=== PATIENT | male | born 1975 | race Caucasian/White ===

== ENCOUNTER 2018-10-08 09:57 | Observation (INO) | payer BC, OTHER ==
[2018-10-08] MEDS ORDERED: HYDROmorphone 1 MG/ML Syringe IVPUSH ONE ×2 (10:05→11:00)
[2018-10-08] MEDS ORDERED: Metoclopramide 10 MG/2 ML SDV IVPUSH ONE (10:05)
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
[2018-10-08] MEDS: Dextrose 5%-0.9% NaCl 1,000 ML IV SCH ×2 (10:18→18:10)
[2018-10-08] MEDS ORDERED: Iohexol 647 MG/ML 100 ML Bottle IVPUSH ONE (10:21)
[2018-10-08] MEDS ORDERED: Sodium Chloride 0.9% 10 ML Syringe FLUSH PRN (10:21)
--- NOTE | 2018-10-08 11:01 | CT ---
CT cervical spine Technique: Multiple axial sections were obtained from above the C1 inferiorly to the bottom of T1. Reconstructed sagittal and coronal images were reviewed. Comparison: No prior cervical spine imaging. Findings: Vertebral body heights and disc spaces are maintained. No bony central or bony neural foraminal stenosis is seen. No cervical spine fracture is identified. No abnormal subluxation is seen. Impression: 1. Nothing acute is appreciated on CT study of the cervical spine. Diagnostic code #1
--- NOTE | 2018-10-08 11:35 | CT ---
CT lumbar spine Technique: Multiple axial sections were obtained through the lumbar spine. Reconstructed coronal and sagittal images were reviewed. Findings: Disc space narrowing is noted at L5-S1 with intervertebral disc fixation as well as transpedicle screws within L5 and S1. Posterior laminectomy is seen at this same level. Circumferential disc bulge is noted at L2-L3 causing mild central canal stenosis. Vacuum disc phenomena is seen within the L4-L5 disc with mild circumferential disc bulge. Anterior osteophytes are seen at L2-L3 and L3-L4. No fracture is seen within the lumbar spine. No abnormal subluxation is seen within the lumbar spine. Impression: 1. Previous surgery. 2. Degenerative change as noted above. 3. No acute abnormality is seen on CT study of the lumbar spine. Diagnostic code #2
--- NOTE | 2018-10-08 11:35 | CT ---
CT thoracic spine Multiple axial sections through the thoracic spine were obtained. Reconstructed coronal and sagittal images were reviewed. Findings: Slight superior endplate concavities are seen of T5, T6 as well as T8 and T9. Minimal endplate concavity superiorly within T10. These are felt to be old and likely developmental. Right-sided rib fractures are again seen as described on chest CT exam. No thoracic spine fracture is seen. Scattered endplate osteophytes are seen. No central canal stenosis or neural foraminal stenosis is identified. Impression: 1. Findings felt to be incidental as noted above. 2. Multiple right-sided rib fractures are again seen. 3. No acute abnormality is appreciated within the thoracic spine. Diagnostic code #2
--- NOTE | 2018-10-08 11:35 | CT ---
Head CT Technique: Multiple axial sections through the brain were obtained. Intravenous contrast not utilized (contrast is noted from prior administration for CT chest abdomen and pelvis exam). Comparison: No prior intracranial imaging. Findings: Ventricles along with basal cisterns and sulci over the convexities are within normal limits for the patient's age. No abnormal parenchymal densities are seen. No evidence of intracranial hemorrhage. No midline shift or mass effect is seen. Bone window settings were reviewed which show an incidental polyp within the left maxillary sinus and right sphenoid sinus. Mild areas of mucosal thickening is seen within the ethmoid sinuses. No acute calvarial abnormality is seen. Impression: 1. Sinus findings which are believed to be chronic and incidental. 2. No acute intracranial abnormality is identified. Diagnostic code #2
--- NOTE | 2018-10-08 11:35 | CT ---
CT chest Technique: Multiple axial sections through the chest were obtained. Intravenous contrast was utilized. Comparison: No prior chest imaging. Findings: Mediastinum and hilar regions appear within normal limits. No pericardial fluid is seen. No axillary adenopathy is identified. Nondisplaced fracture is noted within the posterior right 5th rib. The 6th rib shows a displaced fracture posteriorly with a small amount of air within the adjacent chest wall. There is a minimal amount of adjacent parenchymal density being seen which is felt compatible with atelectasis and possible small area of pulmonary contusion. Very minimal areas of pleural air is seen in this region. Mildly angulated fracture is noted within the posterior 7th rib. Nondisplaced fracture is seen within the posterior 8th rib. No left-sided rib fractures are seen. Additional nondisplaced fractures are noted within the posterior right 3rd and 4th ribs. Impression: 1. Rib fractures within the 3rd through 8th ribs on the right side with displacement of the 6th rib fracture. Around the 6th rib fracture there is a small amount of air within the adjacent chest wall as well as minimal adjacent atelectasis and possibly an amount of pulmonary contusion. Minimal amount of pleural air is also seen at this level. 2. No additional abnormality is seen on CT study of the chest. Diagnostic code #3 CT abdomen and pelvis Technique: Multiple axial sections were obtained from above the dome of the diaphragm inferiorly through the pubic symphysis. Intravenous contrast was utilized. No oral contrast has been given. Findings: Liver shows no focal parenchymal abnormality. Spleen appears within normal limits. Adrenal glands show no nodule. Pancreas is within normal limits. Gallbladder contains no calcified gallstones. Kidney show symmetric contrast enhancement without hydronephrosis or mass. Aorta shows no aneurysm. No retroperitoneal adenopathy or mesenteric abnormalities are seen. No pelvic mass or adenopathy is seen. No free fluid or inflammatory change. Bone window settings were reviewed which show no discrete pelvic fracture. Diagnostic code #2
--- NOTE | 2018-10-08 11:56 | PCM.HP ---
H&P History of Present Illness - General Date of Service: 10/08/18 Admit Problem/Dx: blunt trauma with rib fractures Source of Information: Patient, Provider History Limitations: Reports: No Limitations - History of Present Illness Initial Comments - Free Text/Narative: The patient is a 43 y/o male who was involved in a trauma earlier today when he was thrown off a piece of paving machinery, about 3 ft above ground. The machine was moving backward when it suddenly stopped and he was thrown to the ground. He reports landing on his right shoulder and thorax. He reports feeling difficulty breathing after the injury. He denies any loss of consciousness. He presented to the ED where he underwent CT and lab evaluation. He sustained fractures of right ribs 3-8, with a very minimal hemothorax, possible air in the chest wall. Right Upper Chest Pain Score (Numeric/FACES): 9 - Related Data Allergies/Adverse Reactions: Allergies Allergy/AdvReac Type Severity Reaction Status Date / Time No Known Allergies Allergy Verified 10/08/18 10:10 Home Medications: Home Meds Lisinopril [Prinivil] 10 mg PO DAILY 10/08/18 [History] Past Medical History Cardiovascular History: Reports: Hypertension Respiratory History: Reports: Sleep Apnea Musculoskeletal History: Reports: Back Pain, Chronic (Had spinal fusion done about 7 months ago he believes at L4-L5 level.) - Past Surgical History GI Surgical History: Reports: Hernia, Inguinal (left), Other (See Below) ( Previous umbilical hernia repair done supraumbilically. Well-healed scar) Male Surgical History: Reports: Other (See Below) (left orchiectomy) Neurological Surgical History: Reports: Lumbar Spine (Lumbar spine fusion. He believes L4-L5 and L5-S1 levels. Done in 2018.) Musculoskeletal Surgical History: Reports: Arthroscopic Procedure (bilateral knee arthroscopy) Social & Family History - Family History Cardiac: Reports: High Cholesterol, Hypertension, [place] Endocrine/Metabolic: Reports: Diabetes, type II - Tobacco Use Smoking Status *Q: Never Smoker - Caffeine Use Caffeine Use: Reports: None - Recreational Drug Use Recreational Drug Use: No - Living Situation & Occupation Occupation: Employed H&P Review of Systems - Review of Systems: Review Of Systems: See Below General: Reports: No Symptoms HEENT: Reports: No Symptoms Pulmonary: Reports: No Symptoms Cardiovascular: Reports: No Symptoms Gastrointestinal: Reports: No Symptoms Genitourinary: Reports: No Symptoms Musculoskeletal: Reports: Back Pain Skin: Reports: No Symptoms Exam - Exam Exam: See Below - Vital Signs Vital Signs: Last Vital Signs Temp 36.9 C 10/08/18 10:01 Pulse 92 10/08/18 10:01 Resp 12 10/08/18 10:01 BP 167/99 H 10/08/18 10:01 Pulse Ox 98 10/08/18 10:01 Weight: 113.398 kg - Exam Quality Assessment: No: Supplemental Oxygen General: Alert, Oriented HEENT: Conjunctiva Clear, EOMI Neck: Supple Lungs: Normal Respiratory Effort Cardiovascular: Regular Rate, Regular Rhythm GI/Abdominal Exam: Soft, Non-Tender, No Distention, Pelvis Stable (Male) Exam: Normal Inspection Back Exam: Other (edema over the right paraspinal thorax in area of T6-10, ecchymosis on right flank) Extremities: Normal Inspection Peripheral Pulses: 2+: Posterior Tibial (L), Posterior Tibial (R) Skin: Warm, Dry, Intact Neurological: Cranial Nerves Intact Neuro Extensive - Mental Status: Alert, Oriented x3, Normal Mood/Affect - Patient Data Lab Results Last 24 hrs: Laboratory Results - last 24 hr 10/08/18 10/08/18 10/08/18 Range/Units 10:10 10:10 10:10 WBC 7.97 (4.23-9.07) K/mm3 RBC 4.93 (4.63-6.08) M/mm3 Hgb 14.8 (13.7-17.5) gm/L Hct 43.2 (40.1-51.0) % MCV 87.6 (79.0-92.2) fl MCH 30.0 (25.7-32.2) pg MCHC 34.3 (32.2-35.5) g/dl RDW Std Deviation 38.5 (35.1-43.9) fL Plt Count 294 (163-337) K/mm3 MPV 8.8 L (9.4-12.3) fl Neutrophils % (Manual) 65 H (40-60) % Band Neutrophils % 0 (0-10) % Lymphocytes % (Manual) 23 (20-40) % Atypical Lymphs % 0 % Monocytes % (Manual) 11 H (2-10) % Eosinophils % (Manual) 0 L (0.8-7.0) % Basophils % (Manual) 0 L (0.2-1.2) Metamyelocytes % 1 Platelet Estimate Adequate RBC Morph Comment Normal Sodium 141 (136-145) mEq/L Potassium 3.7 (3.5-5.1) mEq/L Chloride 103 (98-107) mEq/L Carbon Dioxide 28 (21-32) mEq/L Anion Gap 13.7 (5-15) BUN 15 (7-18) mg/dL Creatinine 1.0 (0.7-1.3) mg/dL Est Cr Clr Drug Dosing 101.45 mL/min Estimated GFR (MDRD) > 60 (>60) mL/min BUN/Creatinine Ratio 15.0 (14-18) Glucose 92 (74-106) mg/dL Calcium 9.0 (8.5-10.1) mg/dL Total Bilirubin 0.8 (0.2-1.0) mg/dL AST 28 (15-37) U/L ALT 41 (16-63) U/L Alkaline Phosphatase 84 (46-116) U/L Total Protein 7.7 (6.4-8.2) g/dl Albumin 3.9 (3.4-5.0) g/dl Globulin 3.8 gm/dL Albumin/Globulin Ratio 1.0 (1-2) Amylase 68 (25-115) U/L Blood Type A POSITIVE Gel Antibody Screen Negative Result Diagrams: 10/08/18 10:10 10/08/18 10:10 *Q Meaningful Use (ADM) - VTE Risk Assess *Q Each Risk Factor Represents 1 Point: Age 41 - 59 years, Other Risk Factor ( blunt trauma) Total Score 1 Point Risk Factors: 2 - Problem List (1) Blunt trauma SNOMED Code(s): 679893394, 316077490 ICD Code: T14.90XA - INJURY, UNSPECIFIED, INITIAL ENCOUNTER Status: Acute Current Visit: Yes (2) Ribs, multiple fractures SNOMED Code(s): 5428891 ICD Code: S22.49XA - MULTIPLE FRACTURES OF RIBS, UNSP SIDE, INIT FOR CLOS FX Status: Acute Current Visit: Yes Problem List Initiated/Reviewed/Updated: Yes Orders Last 24hrs: Active Orders 24 hr Category Date Time Status PATIENT RETYPE [BBK] Routine Lab 10/08/18 11:00 Ordered URINALYSIS W/MICROSCOPIC [UA W/MICROSCOPIC] [URIN] Stat Lab 10/08/18 10:25 Ordered Dextrose 5%-0.9% NaCl [Dextrose 5%-Normal Saline] 1,000 Med 10/08/18 10:15 Active ml IV ASDIRECTED Sodium Chloride 0.9% [Saline Flush] Med 10/08/18 10:21 Active 10 ml FLUSH ONETIME PRN Medication Orders Dextrose/Sodium Chloride (Dextrose 5%-Normal Saline) 1,000 mls @ 150 mls/hr IV ASDIRECTED [facility] Last Admin: 10/08/18 10:18 Dose: 150 mls/hr Sodium Chloride (Saline Flush) 10 ml FLUSH ONETIME PRN PRN Reason: IV FLUSH Last Admin: 10/08/18 10:28 Dose: 10 ml Assessment/Plan Comment:: 43 y/o male with blunt trauma 2/2 fall, with right rib fractures and minimal hemothorax, question of air in chest wall - admission for observation and pain control - incentive spirometry, cough and deep breathing - CXR in AM to re-evaluate for delayed PTX or contusion - regular diet - pain control - ambulate ad kristen - f/u on UA for hematuria Vianney Youngblood MD General surgery
[2018-10-08] MEDS ORDERED: Ondansetron 4 MG Tab.DIS PO PRN (12:28)
[2018-10-08] MEDS ORDERED: Albuterol/Ipratropium 3.0-0.5 MG/3 ML Neb Soln NEB PRN (12:28)
[2018-10-08] MEDS ORDERED: HYDROmorphone 0.5 MG/0.5 ML Syringe IVPUSH PRN (12:33)
[2018-10-08] MEDS: Heparin Sodium 5,000 Units/ML Vial SUBCUT SCH ×2 (13:27→20:29)
[2018-10-08] MEDS: Acetaminophen/HYDROcodone 325-5 MG Tab PO PRN ×3 (13:27→22:24)
[2018-10-08] MEDS: Ibuprofen 600 MG Tab PO PRN (15:53)
[2018-10-09] MEDS: Ibuprofen 600 MG Tab PO PRN ×2 (00:03→06:24)
[2018-10-09] MEDS: Dextrose 5%-0.9% NaCl 1,000 ML IV SCH (00:03)
[2018-10-09] MEDS: Acetaminophen/HYDROcodone 325-5 MG Tab PO PRN ×2 (03:45→08:20)
[2018-10-09] MEDS: Heparin Sodium 5,000 Units/ML Vial SUBCUT SCH (03:46)
--- NOTE | 2018-10-09 06:26 | PCM.SURGPN ---
- General Info Date of Service: 10/09/18 Functional Status: Reports: Pain Controlled, Tolerating Diet, Urinating, Incentive Spirometry - Patient Data Vitals - Most Recent: Last Vital Signs Temp 36.4 C 10/09/18 03:52 Pulse 69 10/09/18 03:52 Resp 16 10/09/18 03:52 BP 116/66 10/09/18 03:52 Pulse Ox 96 10/09/18 03:52 Weight - Most Recent: 121.155 kg I&O - Last 24 Hours: Intake & Output 10/08/18 10/08/18 10/09/18 14:59 22:59 06:59 Intake Total 1631 2520 Output Total 325 1550 Balance -325 1631 970 Lab Results Last 24 Hrs: Laboratory Results - last 24 hr 10/08/18 10/08/18 10/08/18 Range/Units 10:10 10:10 10:10 WBC 7.97 (4.23-9.07) K/mm3 RBC 4.93 (4.63-6.08) M/mm3 Hgb 14.8 (13.7-17.5) gm/L Hct 43.2 (40.1-51.0) % MCV 87.6 (79.0-92.2) fl MCH 30.0 (25.7-32.2) pg MCHC 34.3 (32.2-35.5) g/dl RDW Std Deviation 38.5 (35.1-43.9) fL Plt Count 294 (163-337) K/mm3 MPV 8.8 L (9.4-12.3) fl Neutrophils % (Manual) 65 H (40-60) % Band Neutrophils % 0 (0-10) % Lymphocytes % (Manual) 23 (20-40) % Atypical Lymphs % 0 % Monocytes % (Manual) 11 H (2-10) % Eosinophils % (Manual) 0 L (0.8-7.0) % Basophils % (Manual) 0 L (0.2-1.2) Metamyelocytes % 1 Platelet Estimate Adequate RBC Morph Comment Normal Sodium 141 (136-145) mEq/L Potassium 3.7 (3.5-5.1) mEq/L Chloride 103 (98-107) mEq/L Carbon Dioxide 28 (21-32) mEq/L Anion Gap 13.7 (5-15) BUN 15 (7-18) mg/dL Creatinine 1.0 (0.7-1.3) mg/dL Est Cr Clr Drug Dosing 101.45 mL/min Estimated GFR (MDRD) > 60 (>60) mL/min BUN/Creatinine Ratio 15.0 (14-18) Glucose 92 (74-106) mg/dL Calcium 9.0 (8.5-10.1) mg/dL Total Bilirubin 0.8 (0.2-1.0) mg/dL AST 28 (15-37) U/L ALT 41 (16-63) U/L Alkaline Phosphatase 84 (46-116) U/L Total Protein 7.7 (6.4-8.2) g/dl Albumin 3.9 (3.4-5.0) g/dl Globulin 3.8 gm/dL Albumin/Globulin Ratio 1.0 (1-2) Amylase 68 (25-115) U/L Urine Color (Yellow) Urine Appearance (Clear) Urine pH (5.0-8.0) Ur Specific [place] (1.005-1.030) Urine Protein (Negative) Urine Glucose (UA) (Negative) Urine Ketones (Negative) Urine Occult Blood (Negative) Urine Nitrite (Negative) Urine Bilirubin (Negative) Urine Urobilinogen (0.2-1.0) Ur Leukocyte Esterase (Negative) Urine RBC (0-5) /hpf Urine WBC (0-5) /hpf Ur Epithelial Cells (0-5) /hpf Ur Squamous Epith Cells (0-5) /hpf Urine Bacteria (FEW) /hpf Urine Mucus (FEW) /hpf Blood Type A POSITIVE Gel Antibody Screen Negative 10/08/18 10/08/18 Range/Units 11:30 19:10 WBC (4.23-9.07) K/mm3 RBC (4.63-6.08) M/mm3 Hgb (13.7-17.5) gm/L Hct (40.1-51.0) % MCV (79.0-92.2) fl MCH (25.7-32.2) pg MCHC (32.2-35.5) g/dl RDW Std Deviation (35.1-43.9) fL Plt Count (163-337) K/mm3 MPV (9.4-12.3) fl Neutrophils % (Manual) (40-60) % Band Neutrophils % (0-10) % Lymphocytes % (Manual) (20-40) % Atypical Lymphs % % Monocytes % (Manual) (2-10) % Eosinophils % (Manual) (0.8-7.0) % Basophils % (Manual) (0.2-1.2) Metamyelocytes % Platelet Estimate RBC Morph Comment Sodium (136-145) mEq/L Potassium (3.5-5.1) mEq/L Chloride (98-107) mEq/L Carbon Dioxide (21-32) mEq/L Anion Gap (5-15) BUN (7-18) mg/dL Creatinine (0.7-1.3) mg/dL Est Cr Clr Drug Dosing mL/min Estimated GFR (MDRD) (>60) mL/min BUN/Creatinine Ratio (14-18) Glucose (74-106) mg/dL Calcium (8.5-10.1) mg/dL Total Bilirubin (0.2-1.0) mg/dL AST (15-37) U/L ALT (16-63) U/L Alkaline Phosphatase (46-116) U/L Total Protein (6.4-8.2) g/dl Albumin (3.4-5.0) g/dl Globulin gm/dL Albumin/Globulin Ratio (1-2) Amylase (25-115) U/L Urine Color Yellow Yellow (Yellow) Urine Appearance Clear Clear (Clear) Urine pH 7.0 6.0 (5.0-8.0) Ur Specific [place] 1.015 1.010 (1.005-1.030) Urine Protein Trace H Negative (Negative) Urine Glucose (UA) Negative Negative (Negative) Urine Ketones Negative Negative (Negative) Urine Occult Blood Trace-intact H Trace-lysed H (Negative) Urine Nitrite Negative Negative (Negative) Urine Bilirubin Negative Negative (Negative) Urine Urobilinogen 0.2 0.2 (0.2-1.0) Ur Leukocyte Esterase Negative Negative (Negative) Urine RBC 0-5 Not seen (0-5) /hpf Urine WBC Not seen Not seen (0-5) /hpf Ur Epithelial Cells Not seen (0-5) /hpf Ur Squamous Epith Cells Not seen (0-5) /hpf Urine Bacteria Few Not seen (FEW) /hpf Urine Mucus Few Not seen (FEW) /hpf Blood Type Gel Antibody Screen Med Orders - Current: Current Medications Hydrocodone Bitart/Acetaminophen ([place] 325-5 Mg) 2 tab PO Q4H PRN PRN Reason: Pain (moderate 4-6) Last Admin: 10/08/18 22:24 Dose: 2 tab Albuterol/Ipratropium (Duoneb 3.0-0.5 Mg/3 Ml) 3 ml NEB Q4H PRN PRN Reason: Shortness Of Breath/wheezing Heparin Sodium (Porcine) (Heparin Sodium) 5,000 units SUBCUT Q8H [facility] Last Admin: 10/08/18 20:29 Dose: 5,000 units Hydromorphone HCl (Dilaudid) 0.5 mg IVPUSH Q3H PRN PRN Reason: Breakthrough Pain Last Admin: 10/08/18 17:02 Dose: 0.5 mg Dextrose/Sodium Chloride (Dextrose 5%-Normal Saline) 1,000 mls @ 150 mls/hr IV ASDIRECTED [facility] Last Admin: 10/09/18 00:03 Dose: 150 mls/hr Ibuprofen (Motrin) 600 mg PO Q6H PRN PRN Reason: Pain (mild 1-3) Last Admin: 10/09/18 00:03 Dose: 600 mg Lisinopril (Prinivil) 10 mg PO DAILY [facility] Ondansetron HCl (Zofran Odt) 4 mg PO Q6H PRN PRN Reason: nausea, able to take PO Sodium Chloride (Saline Flush) 10 ml FLUSH ONETIME PRN PRN Reason: IV FLUSH Last Admin: 10/08/18 10:28 Dose: 10 ml Discontinued Medications Hydromorphone HCl (Dilaudid) 1 mg IVPUSH ONETIME ONE Stop: 10/08/18 10:06 Last Admin: 10/08/18 10:14 Dose: 1 mg Hydromorphone HCl (Dilaudid) 1 mg IVPUSH ONETIME ONE Stop: 10/08/18 11:01 Last Admin: 10/08/18 11:15 Dose: 1 mg Iohexol (Omnipaque-300) 100 ml IVPUSH ONETIME ONE Stop: 10/08/18 10:22 Last Admin: 10/08/18 10:28 Dose: 100 ml Metoclopramide HCl (Reglan) 10 mg IVPUSH ONETIME ONE Stop: 10/08/18 10:06 Last Admin: 10/08/18 10:16 Dose: 10 mg - Exam Wound/Incisions: Healing Well General: Alert, Oriented HEENT: Pupils Equal, EOMI Lungs: Clear to Auscultation, Normal Respiratory Effort - Problem List & Annotations (1) Blunt trauma SNOMED Code(s): 384780001, 833135116 Code(s): T14.90XA - INJURY, UNSPECIFIED, INITIAL ENCOUNTER Status: Acute Current Visit: Yes (2) Ribs, multiple fractures SNOMED Code(s): 0942099 Code(s): S22.49XA - MULTIPLE FRACTURES OF RIBS, UNSP SIDE, INIT FOR CLOS FX Status: Acute Current Visit: Yes - Problem List Review Problem List Initiated/Reviewed/Updated: Yes - My Orders Last 24 Hours: Active Orders 24 hr Category Date Time Status Patient Status [ADT] Routine ADT 10/08/18 12:28 Active Ambulate [RC] DAILY Care 10/08/18 12:29 Active Antiembolic Devices [RC] DAILY Care 10/08/18 12:31 Active Incentive Spirometry [RT Incentive Spirometry] [RC] Care 10/08/18 12:38 Active Q1HWA Oxygen Therapy [RC] PRN Care 10/08/18 12:28 Active RT Aerosol Therapy [RC] ASDIRECTED Care 10/08/18 12:31 Active Up ad Talia [RC] ASDIRECTED Care 10/08/18 12:28 Active VTE/DVT Education [RC] DAILY Care 10/08/18 12:28 Active Vital Signs [RC] Q4HR Care 10/08/18 12:28 Active Regular Diet [DIET] Diet 10/08/18 Lunch Active Chest 2V [CR] AM Exams 10/09/18 05:11 Ordered Acetaminophen/HYDROcodone [[place] 325-5 MG] Med 10/08/18 12:28 Active 2 tab PO Q4H PRN Albuterol/Ipratropium [DuoNeb 3.0-0.5 MG/3 ML] Med 10/08/18 12:28 Active 3 ml NEB Q4H PRN Dextrose 5%-0.9% NaCl [Dextrose 5%-Normal Saline] 1,000 Med 10/08/18 10:15 Active ml IV ASDIRECTED HYDROmorphone [Dilaudid] Med 10/08/18 12:33 Active 0.5 mg IVPUSH Q3H PRN Heparin Sodium Med 10/08/18 12:30 Active 5,000 units SUBCUT Q8H Ibuprofen [Motrin] Med 10/08/18 12:28 Active 600 mg PO Q6H PRN Lisinopril [Prinivil] Med 10/09/18 09:00 Active 10 mg PO DAILY Ondansetron [Zofran ODT] Med 10/08/18 12:28 Active 4 mg PO Q6H PRN Sodium Chloride 0.9% [Saline Flush] Med 10/08/18 10:21 Active 10 ml FLUSH ONETIME PRN CPAP [RESPCARE] Routine Oth 10/08/18 21:00 Active Sequential Compression Device [OM.PC] Per Unit Routine Oth 10/08/18 12:29 Ordered Resuscitation Status Routine Resus Stat 10/08/18 12:28 Ordered Medication Orders Hydrocodone Bitart/Acetaminophen ([place] 325-5 Mg) 2 tab PO Q4H PRN PRN Reason: Pain (moderate 4-6) Last Admin: 10/08/18 22:24 Dose: 2 tab Admin: 10/08/18 18:07 Dose: 2 tab Admin: 10/08/18 13:27 Dose: 2 tab Albuterol/Ipratropium (Duoneb 3.0-0.5 Mg/3 Ml) 3 ml NEB Q4H PRN PRN Reason: Shortness Of Breath/wheezing Heparin Sodium (Porcine) (Heparin Sodium) 5,000 units SUBCUT Q8H [facility] Last Admin: 10/08/18 20:29 Dose: 5,000 units Admin: 10/08/18 13:27 Dose: 5,000 units Hydromorphone HCl (Dilaudid) 0.5 mg IVPUSH Q3H PRN PRN Reason: Breakthrough Pain Last Admin: 10/08/18 17:02 Dose: 0.5 mg Dextrose/Sodium Chloride (Dextrose 5%-Normal Saline) 1,000 mls @ 150 mls/hr IV ASDIRECTED [facility] Last Admin: 10/09/18 00:03 Dose: 150 mls/hr Infusion: 10/09/18 00:03 Dose: 150 mls/hr Admin: 10/08/18 18:10 Dose: 150 mls/hr Infusion: 05/28/19 17:30 Dose: 150 mls/hr Admin: 10/08/18 10:18 Dose: 150 mls/hr Ibuprofen (Motrin) 600 mg PO Q6H PRN PRN Reason: Pain (mild 1-3) Last Admin: 10/09/18 00:03 Dose: 600 mg Admin: 10/08/18 15:53 Dose: 600 mg Lisinopril (Prinivil) 10 mg PO DAILY [facility] Ondansetron HCl (Zofran Odt) 4 mg PO Q6H PRN PRN Reason: nausea, able to take PO Sodium Chloride (Saline Flush) 10 ml FLUSH ONETIME PRN PRN Reason: IV FLUSH Last Admin: 10/08/18 10:28 Dose: 10 ml - Assessment Assessment (Free Text/Narrative):: 43 y/o male with multiple rib fractures after a recent injury. Doing well - Plan Plan (Free Text/Narrative):: - f/u on CXR this am - will transition to PO meds for home - continue IS with cough and deep breathing - ambulate frequently - follow up in 2 weeks, recommend 2 weeks off from work Vianney Youngblood MD General surgery
--- NOTE | 2018-10-09 07:15 | CR ---
Chest: Two views of the chest were obtained. Comparison: Prior chest CT study of 10/08/18. Previous right-sided rib fractures seen on earlier chest CT are poorly seen on plain film study. Lungs are clear with no acute parenchymal change being seen. No pneumothorax is seen. Heart size and mediastinum are normal. Impression: 1. Previously seen rib fractures are poorly identified on plain film study. 2. Nothing acute is seen on current chest x-ray. Diagnostic code #1
[2018-10-09] MEDS ORDERED: Lisinopril 10 MG Tab PO SCH (09:00)
--- NOTE | 2018-10-09 18:19 | PCM.DCSUM1 ---
Discharge Summary - Hospital Course Free Text/Narrative:: The patient is a 43 y/o male who presented after a fall from a piece of heavy machinery. He sustained multiple rib fractures and was admitted for observation and pain control. He did well and maintained O2 saturations. He was discharged home the next day. Diagnosis: Stroke: No Modified [place] Scale: No Signif.Disability Despite Sympt.Able to Carry Out Usual Act./Duties Modified [place] Scale Score: 1 - Discharge Data Discharge Date: 10/09/18 Discharge Disposition: Home, Self-Care 01 Condition: Good - Discharge Diagnosis/Problem(s) (1) Blunt trauma SNOMED Code(s): 805466410, 299515202 ICD Code: T14.90XA - INJURY, UNSPECIFIED, INITIAL ENCOUNTER Status: Acute (2) Ribs, multiple fractures SNOMED Code(s): 4645852 ICD Code: S22.49XA - MULTIPLE FRACTURES OF RIBS, UNSP SIDE, INIT FOR CLOS FX Status: Acute - Patient Instructions Diet: Usual Diet as Tolerated Activity: As Tolerated, Cough & Deep Breathe, No Lifting Over 20 Pounds (for 2 weeks), No Strenuous Activities (for 2 weeks) Showering/Bathing: May Shower Notify Provider of: Fever, Increased Pain, Nausea and/or Vomiting - Discharge Plan *PRESCRIPTION DRUG MONITORING PROGRAM REVIEWED*: Not Applicable *COPY OF PRESCRIPTION DRUG MONITORING REPORT IN PATIENT EH: Not Applicable Prescriptions/Med Rec: Acetaminophen/HYDROcodone [[place] 325-5 MG] 2 tab PO Q4H PRN 14 Days #40 tablet PRN Reason: Pain (Moderate 4-6) Docusate Sodium [Colace] 100 mg PO BID PRN 20 Days #40 cap PRN Reason: Constipation Ibuprofen [Motrin] 600 mg PO Q6H PRN 20 Days #120 tablet PRN Reason: Pain (Mild 1-3) Home Medications: Home Meds Lisinopril [Prinivil] 10 mg PO DAILY 10/08/18 [History] Acetaminophen/HYDROcodone [[place] 325-5 MG] 2 tab PO Q4H PRN 14 Days #40 tablet 10/09/18 [Rx] Docusate Sodium [Colace] 100 mg PO BID PRN 20 Days #40 cap 10/09/18 [Rx] Ibuprofen [Motrin] 600 mg PO Q6H PRN 20 Days #120 tablet 10/09/18 [Rx] Patient Handouts: Contusion, [id number], Rib Fracture, [id number] Forms: ED Department Discharge Referrals: Vianney Youngblood MD [Physician] - 10/23/18 2:30 pm (Please follow-up with Dr. Saez on SundayOctober 23 at 230pm or follow-up with your primary as discussed. ) PCP,Not In Area [Primary Care Provider] - - Discharge Summary/Plan Comment DC Time >30 min.: No - Patient Data Vitals - Most Recent: Last Vital Signs Temp 36.8 C 10/09/18 08:00 Pulse 88 10/09/18 08:00 Resp 18 10/09/18 08:00 BP 132/87 10/09/18 08:22 Pulse Ox 94 L 10/09/18 08:00 Weight - Most Recent: 121.155 kg I&O - Last 24 hours: Intake & Output 10/09/18 10/09/18 10/09/18 06:59 14:59 22:59 Intake Total 2520 Output Total 1550 400 Balance 970 -400 Lab Results - Last 24 hrs: Laboratory Results - last 24 hr 10/08/18 Range/Units 19:10 Urine Color Yellow (Yellow) Urine Appearance Clear (Clear) Urine pH 6.0 (5.0-8.0) Ur Specific [place] 1.010 (1.005-1.030) Urine Protein Negative (Negative) Urine Glucose (UA) Negative (Negative) Urine Ketones Negative (Negative) Urine Occult Blood Trace-lysed H (Negative) Urine Nitrite Negative (Negative) Urine Bilirubin Negative (Negative) Urine Urobilinogen 0.2 (0.2-1.0) Ur Leukocyte Esterase Negative (Negative) Urine RBC Not seen (0-5) /hpf Urine WBC Not seen (0-5) /hpf Ur Epithelial Cells Not seen (0-5) /hpf Urine Bacteria Not seen (FEW) /hpf Urine Mucus Not seen (FEW) /hpf Med Orders - Current: Current Medications Discontinued Medications Hydrocodone Bitart/Acetaminophen ([place] 325-5 Mg) 2 tab PO Q4H PRN PRN Reason: Pain (moderate 4-6) Last Admin: 10/09/18 08:20 Dose: 2 tab Albuterol/Ipratropium (Duoneb 3.0-0.5 Mg/3 Ml) 3 ml NEB Q4H PRN PRN Reason: Shortness Of Breath/wheezing Heparin Sodium (Porcine) (Heparin Sodium) 5,000 units SUBCUT Q8H COUNT INCLUDES THE [facility] Last Admin: 10/09/18 03:46 Dose: 5,000 units Hydromorphone HCl (Dilaudid) 1 mg IVPUSH ONETIME ONE Stop: 10/08/18 10:06 Last Admin: 10/08/18 10:14 Dose: 1 mg Hydromorphone HCl (Dilaudid) 1 mg IVPUSH ONETIME ONE Stop: 10/08/18 11:01 Last Admin: 10/08/18 11:15 Dose: 1 mg Hydromorphone HCl (Dilaudid) 0.5 mg IVPUSH Q3H PRN PRN Reason: Breakthrough Pain Last Admin: 10/08/18 17:02 Dose: 0.5 mg Dextrose/Sodium Chloride (Dextrose 5%-Normal Saline) 1,000 mls @ 150 mls/hr IV ASDIRECTED COUNT INCLUDES THE [facility] Last Admin: 10/09/18 00:03 Dose: 150 mls/hr Ibuprofen (Motrin) 600 mg PO Q6H PRN PRN Reason: Pain (mild 1-3) Last Admin: 10/09/18 06:24 Dose: 600 mg Iohexol (Omnipaque-300) 100 ml IVPUSH ONETIME ONE Stop: 10/08/18 10:22 Last Admin: 10/08/18 10:28 Dose: 100 ml Lisinopril (Prinivil) 10 mg PO DAILY COUNT INCLUDES THE [facility] Last Admin: 10/09/18 08:21 Dose: 10 mg Metoclopramide HCl (Reglan) 10 mg IVPUSH ONETIME ONE Stop: 10/08/18 10:06 Last Admin: 10/08/18 10:16 Dose: 10 mg Ondansetron HCl (Zofran Odt) 4 mg PO Q6H PRN PRN Reason: nausea, able to take PO Sodium Chloride (Saline Flush) 10 ml FLUSH ONETIME PRN PRN Reason: IV FLUSH Last Admin: 10/08/18 10:28 Dose: 10 ml
== END 2018-10-09 08:48 | disposition home or self-care (01) ==
LOC: JD.ED 09:57 → JD.MS 12:28
PROVIDERS: ADMIT Surgery; ATTEND Surgery
DX: S27.1XXA Traumatic hemothorax, initial encounter (principal); S22.41XA Multiple fractures of ribs, right side, initial encounter for closed fracture; I10 Essential (primary) hypertension; W31.89XA Contact with other specified machinery, initial encounter; Z79.899 Other long term (current) drug therapy; Y99.0 Civilian activity done for income or pay
CPT/HCPCS: 36415; 70450; 71046; 71260; 72125; 72128; 72131; 74177; 80053; 81001; 82150; 85007; 85027; 86850; 86900; 86901; 94660; 96361; 96372; 96374; 96375; 96376; 99285; A9270; G0378; J1170; J1644; J2765; J7042; Q9967